=== PATIENT | female | born 1985 | race Caucasian/White ===

== ENCOUNTER 2025-03-14 16:03 | Outpatient (CLI) | payer OTHER ==
[~2025-03-14] VITALS: Ht 167.6 cm; Wt 103.4 kg
[~2025-03-14 16:03] MED LIST: CLARINEX-D 21 BOTTLE PO; OSEL75CA PO; TUSNEL C SYRUP473 ML PO
[2025-03-14 16:22] VITALS: BP 122/77; O2SAT 98
[2025-03-14 17:11] LABS: URINE APPEARANCE Clear; URINE BILIRRUBIN Negative (NEGATIVE); URINE BLOOD Negative; URINE COLOR Yellow; URINE KETONE Trace (NEGATIVE); URINE LEUKOCYTE Negative; URINE NITRATE Negative; URINE PROTEIN 30 (NEGATIVE); URINE UROBILINOGEN 0.2 E.U./dl
[2025-03-14 17:13] LABS: BASO % 0.3 % (0.1-1.2); EOS # 0.03 (0.04-0.54); EOS % 0.2 % (0.7-7.0); LYMPH # 2.35 (1.18-3.74); LYMPH % 16.9 % (19.3-53.1); MEAN PLATELET VOLUME 11.50 fl (9.4-12.4); MONO # 1.07 (0.24-0.82); MONO % 7.7 % (4.7-12.5); NEUT # 10.39 (1.56-6.13); NEUT % 74.5 % (34.0-71.1); RED CELL DISTRIBUTION WIDTH 12.8 % (11.6-14.4)
[2025-03-14 17:15] LABS: URINE BACTERIA 312.2 uL (0.0-1933); URINE EPITHELIAL CELLS 12.6 uL (0.0-38.8); URINE RBC 3.2 uL (0.0-20.8); URINE WBC 3.9 uL (0.0-23.2)
[2025-03-14 17:18] LABS: URINE CAST 0.00 uL (0.0-1.40); URINE GLUCOSE 100 MG/DL (NEGATIVE)
[2025-03-14 17:36] LABS: INR 0.94
[2025-03-14 17:42] LABS: ALT/SGPT 23.0 U/L (12-78); AST/SGOT 14.0 U/L (15-37); BILIRUBIN TOTAL 0.26 mg/dL (0.3-1.2); BUN CREA RATIO 18.0 (7.0-25.0); CREATININE SERUM 0.66 mg/dL (0.55-1.02); GFR 99.19; GLOBULINA 3.8 G/DL (2.4-3.5); GLUCOSE FASTING 72.0 mg/dL (65-100); OSMOLALITY SERUM 280.0 MOSM/KG (275-295)
[2025-03-14] MEDS ORDERED: ASA81 MG PO (17:42)
[2025-03-14] MEDS ORDERED: PRENATAL TABLE1 EAC1 PO (17:42)
[2025-03-14 20:21] VITALS: BP 112/76
[2025-03-14] MEDS ORDERED: RINGERS SOLUTION,LACTATED 1,000 ML IV SCH (23:15)
[2025-03-14 23:22] VITALS: BP 105/66
[2025-03-15 03:19] VITALS: BP 102/63
[2025-03-15 06:14] VITALS: BP 94/59; O2SAT 98
[2025-03-15 11:04] VITALS: BP 99/66; O2SAT 97
[2025-03-15 15:19] VITALS: BP 99/64
[2025-03-15 17:24] LABS: URINE PROT QUANT 24HR 21.4 MG/DL
[2025-03-15 17:26] LABS: URINE PROT QUANT 24 HR 492.2 MG/24HR (42-225)
[2025-03-15 18:15] LABS: CREATINE CLEARANCE 194.6 ML/MIN (97-137); CREATININE SERUM 0.51 mg/dL (0.6-1.0)
[2025-03-15 19:41] VITALS: BP 99/64
== END 2025-03-15 19:41 | disposition home or self-care (01) ==
LOC: OBS/DEL 16:03
PROVIDERS: ATTEND Specialist
DX: O10.013 Pre-existing essential hypertension complicating pregnancy, third trimester (principal); Z3A.34 34 weeks gestation of pregnancy

== ENCOUNTER 2025-03-29 08:30 | Inpatient (IN) | payer OTHER ==
[~2025-03-29] VITALS: Ht 167.6 cm; Wt 104.8 kg
[~2025-03-29 08:30] MED LIST changes: +ASA81 MG PO; +PRENATAL TABLE1 EAC1 PO
[2025-03-29 10:45] LABS: URINE APPEARANCE Clear; URINE BILIRRUBIN Negative (NEGATIVE); URINE BLOOD Negative; URINE COLOR Yellow; URINE GLUCOSE Negative (NEGATIVE); URINE KETONE Negative (NEGATIVE); URINE LEUKOCYTE Negative; URINE NITRATE Negative; URINE PROTEIN Trace (NEGATIVE); URINE UROBILINOGEN 0.2 E.U./dl
[2025-03-29 10:49] LABS: URINE BACTERIA 163.4 uL (0.0-1933); URINE EPITHELIAL CELLS 9.0 uL (0.0-38.8); URINE RBC 4.1 uL (0.0-20.8); URINE WBC 4.7 uL (0.0-23.2)
[2025-03-29 10:51] LABS: URINE CAST 0.28 uL (0.0-1.40)
[2025-03-29 11:10] LABS: BASO % 0.3 % (0.1-1.2); EOS # 0.04 (0.04-0.54); EOS % 0.4 % (0.7-7.0); LYMPH # 2.15 (1.18-3.74); LYMPH % 19.2 % (19.3-53.1); MEAN PLATELET VOLUME 12.00 fl (9.4-12.4); MONO # 0.73 (0.24-0.82); MONO % 6.5 % (4.7-12.5); NEUT # 8.19 (1.56-6.13); NEUT % 73.0 % (34.0-71.1); RED CELL DISTRIBUTION WIDTH 13.1 % (11.6-14.4)
[2025-03-29 11:16] LABS: ALT/SGPT 22.0 U/L (12-78); AST/SGOT 13.0 U/L (15-37); BILIRUBIN TOTAL 0.28 mg/dL (0.3-1.2); BUN CREA RATIO 18.0 (7.0-25.0); CREATININE SERUM 0.5 mg/dL (0.55-1.02); GFR 136.65; GLOBULINA 4.1 G/DL (2.4-3.5); GLUCOSE FASTING 74.0 mg/dL (65-100); OSMOLALITY SERUM 277.0 MOSM/KG (275-295)
[2025-03-29 11:19] LABS: INR < 0.93
[2025-04-02 06:50] VITALS: BP 127/86
[2025-04-02] MEDS ORDERED: CEFAZOLIN SODIUM 1,000 MG VIAL ONE (07:55)
[2025-04-02] MEDS ORDERED: OXYTOCIN 10 UNITS/ML VIAL ONE (08:50)
[2025-04-02] MEDS ORDERED: ERYTHROMYCIN BASE OPHT 1GM EACH TUBE OP ONE (08:51)
[2025-04-02] MEDS ORDERED: MORPHINE SULFATE 4 MG/ML VIAL IV SCH (13:00)
[2025-04-02] MEDS ORDERED: KETOROLAC TROMETHAMINE 60 MG VIAL IM NR (13:00)
[2025-04-02] MEDS ORDERED: SIMETHICONE 125 MG CAPSULE PO NR (13:00)
[2025-04-02] MEDS ORDERED: KETOROLAC TROMETHAMINE 60 MG VIAL IM ONE (13:02)
[2025-04-02 14:54] VITALS: BP 144/85
[2025-04-02 15:48] VITALS: BP 138/87
[2025-04-02 19:25] LABS: BASO % 0.2 % (0.1-1.2); EOS # 0.04 (0.04-0.54); EOS % 0.2 % (0.7-7.0); LYMPH # 2.26 (1.18-3.74); LYMPH % 13.7 % (19.3-53.1); MEAN PLATELET VOLUME 12.30 fl (9.4-12.4); MONO # 1.09 (0.24-0.82); MONO % 6.6 % (4.7-12.5); NEUT # 13.06 (1.56-6.13); NEUT % 78.9 % (34.0-71.1); RED CELL DISTRIBUTION WIDTH 12.9 % (11.6-14.4)
[2025-04-03] VITALS: BP 130/78
[2025-04-03] MEDS ORDERED: MEASLES,MUMPS,RUBELLA VACC/PF 1 VIAL VIAL SUBCUTANEO NR (07:45)
[2025-04-03] MEDS ORDERED: ACETAMINOPHEN 325 MG TABLET PO SCH (08:00)
[2025-04-03] MEDS ORDERED: OxyCODONE HCL 5 MG TABLET (ROXICODONE) PO SCH (08:00)
[2025-04-03] MEDS ORDERED: DOCUSATE SODIUM 100MG CAP PO NR (08:00)
[2025-04-03] MEDS ORDERED: ENOXAPARIN SODIUM 40 MG/0.4 ML SYRINGE SUBCUTANEO NR (10:00)
[2025-04-03 10:20] VITALS: BP 122/80; O2SAT 98
[2025-04-03 15:54] VITALS: BP 143/89
[2025-04-03 20:42] VITALS: BP 137/88
[2025-04-04] VITALS: BP 131/84
[2025-04-04] MEDS ORDERED: IBU800 MG PO (08:11)
[2025-04-04] MEDS ORDERED: COLACE100 MG PO (08:12)
[2025-04-04] MEDS ORDERED: SIMETHICONE125 M1 PO (08:13)
[2025-04-04 09:13] VITALS: BP 119/80; O2SAT 98
== END 2025-04-04 13:44 | disposition home or self-care (01) | DRG 785 ==
LOC: O/R 04-02 05:15 → OB/GYN 04-02 08:30
PROVIDERS: ADMIT Specialist; ATTEND Specialist
PROC: 0UB70ZZ Excision of Bilateral Fallopian Tubes, Open Approach (ICD-10-PCS; 2025-04-02)
PROC: 4A1HXCZ Monitoring of Products of Conception, Cardiac Rate, External Approach (ICD-10-PCS; 2025-04-02)
PROC: 10D00Z1 Extraction of Products of Conception, Low, Open Approach (ICD-10-PCS; principal; 2025-04-02 09:30)
DX: O14.04 Mild to moderate pre-eclampsia, complicating childbirth (principal); O34.211 Maternal care for low transverse scar from previous cesarean delivery; Z3A.37 37 weeks gestation of pregnancy; Z37.0 Single live birth; Z30.2 Encounter for sterilization